=== PATIENT | female | born 1930 | race Caucasian/White ===

== ENCOUNTER 2017-04-06 17:59 | Inpatient (IN) ==
[2017-04-06] MEDS ORDERED: Naloxone 0.4 MG/ML INJ IVP PRN (21:51)
[2017-04-06] MEDS ORDERED: Ondansetron 4 MG/2 ML VIAL IVP PRN (21:51)
[2017-04-06] MEDS ORDERED: Acetaminophen 325 MG TABLET PO PRN (21:51)
[2017-04-06] MEDS: *HR* Morphine 2 MG/ML SYRINGE IVP PRN (22:26)
[2017-04-07 01:46] LABS: Basophils % 0.3 %; Eosinophils # 0.1 K/mcL (0.0-0.6); Eosinophils % 0.7 %; Hematocrit 32.5 % (35.3-44.9); Hemoglobin 10.5 g/dL (11.5-15.4); Immature Granulocytes % 0.3 % (0-4); Lymphocytes # 2.2 K/mcL (0.6-4.6); Lymphocytes % 24.1 %; Mean Corpuscular HGB Conc 32.3 g/dL (31.6-35.5); Mean Corpuscular Hemoglobin 27.6 pg (28.0-33.3); Mean Corpuscular Volume 85.3 fL (83.0-100.0); Mean Platelet Volume 11.1 fL (9.4-12.4); Monocytes # 1.2 K/mcL (0.0-1.3); Monocytes % 12.7 %; Neutrophils # 5.7 K/mcL (1.6-8.9); Platelet Count 214 K/mcL (140-400); Red Blood Count 3.81 M/mcL (3.82-4.97); Red Cell Distribution Width 14.5 % (11.5-14.5); Segmented Neutrophils % 61.9 %
[2017-04-07 01:51] LABS: INR 3.2; Prothrombin Time 35.6 Seconds (9.4-12.1)
[2017-04-07 02:01] LABS: Calcium 9.2 mg/dL (8.6-10.8); Potassium 3.9 mEq/L (3.5-4.5)
--- NOTE | 2017-04-07 02:23 | Internal Med History&Physical ---
Date of Encounter: 04/06/17 Time of Encounter: 21:00 Assessment and Plan (1) A-fib Current visit: Yes Status: Acute Heart rate is well controlled. Patient is on Coumadin. Will resume home medication for heart rate control when home medication is verified. Will hold the Coumadin at this point, may resume after orthopedic consult if no procedure is planned. Qualifiers: Atrial fibrillation type: chronic Qualified Code(s): I48.2 - Chronic atrial fibrillation (2) Hypothyroidism Current visit: Yes Status: Acute Will resume home medication after verification. Qualifiers: Hypothyroidism type: acquired Qualified Code(s): E03.9 - Hypothyroidism, unspecified (3) History of breast cancer Current visit: No Status: Acute S/P surgery (4) Fracture of left hip Current visit: No Status: Acute Due to mechanical fall. Continue pain medication. Orthopedic consult. Patient is at high risk because she is at advanced age but needs IV opioid. Qualifiers: Encounter type: initial encounter Fracture type: closed Qualified Code(s) : S72.002A - Fracture of unspecified part of neck of left femur, initial encounter for closed fracture (5) DVT prophylaxis Current visit: Yes Status: Acute Patient is on Coumadin, INR 2.9. Place EPCD. Internal Medicine - H&P: HPI Chief complaint: Fall and left hip pain Admitted From: Home Plans for Post Hospital Care: Transfer Inp Rehab Fac History of present illness: Ms. Lancaster is a 86 year old female transferred from [place] emergency room because of fall and left hip pain. Patient has history of A. fib on Coumadin. Patient said she fell in the morning are around [address] is wet[address] Patient denies loss of consciousness, denies head or neck injury. She was sent to [place] emergency room, pelvis CAT scan shows acute comminuted nondisplaced fracture of the greater trochanter of the left femur. Orthopedic consult was called. Recommend patient to transfer to our hospital for further management.. I have discussed the CODE STATUS with patient. She is full code. Past Med Surg Social Fam HX - Past Medical History Medical history: arthritis, atrial fibrillation, cancer, osteoporosis Psychiatric history: no psych history - Past Surgical History Surgical History: breast surgery, cholecystectomy - Social History Smoking Status: Never smoker Smokeless Tobacco Status: Yes Alcohol use: none Drug use: none - Family History Mother Living Status: Cause of : diabetes Father Living Status: Age at : 75 Cause of : cancer Internal Medicine - H&P: Meds Ascorbic Acid [Vitamin C] 500 mg PO DAILY #30 tablet 03/28/15 [Rx] Coumadin 1 tab PO DAILY 03/28/15 [History] Diltiazem HCl 1 tab PO DAILY 03/28/15 [History] Synthroid 1 tab PO DAILY 03/28/15 [History] Vitamin B-12 1 tab PO DAILY 03/28/15 [History] Calcium Carbonate [Calcium] 600 mg PO BID #60 tablet 09/25/16 [Rx] Cholecalciferol (Vitamin D3) [Dialyvite Vitamin D3 Max] 50,000 unit PO QWEEK # 14 tab 09/25/16 [Rx] Tramadol HCl [Ultram] 50 mg PO BID PRN #60 tab 12/26/16 [Rx] Calcitriol 0.5 mcg PO QDPC 02/27/17 [History] Sodium Bicarbonate 650 mg PO QDPC 02/27/17 [History] 3 Allergy/AdvReac Type Severity Reaction Status Date / Time No Known Allergies Allergy Verified 09/26/15 11:50 All Systems PM: A 10-system review of systems was performed and is negative for pertinent findings except as documented above in the HPI. - Constitutional Vitals: Temp Pulse Resp BP Pulse Ox 97.7 F 71 16 127/83 98 04/06/17 23:52 04/06/17 23:52 04/06/17 23:52 04/07/17 02:10 04/06/17 23:52 General appearance: Present: A&O X 3, no acute distress, answers questions appropriately - Head Head exam: Present: atraumatic, normocephalic - Eye Eye exam: Present: PERRL, conjuntiva pink, sclera anicteric Pupils: Present: PERRL - Neck Neck exam general surgery: Present: supple, trachea midline. Absent: lymphadenopathy - Respiratory Respiratory exam: Present: CTAB. Absent: accessory muscle use, rales, rhonchi, wheezes - Cardiovascular Cardiovascular exam: Present: irregular rhythm, +S1, +S2. Absent: diastolic murmur, gallop, rubs, systolic murmur - GI/Abdominal GI/Abdominal exam: Present: normal bowel sounds, soft, no peritoneal signs. Absent: distended, tenderness - Extremities Exam Extremities exam: Present: tenderness (Tenderness on left hip), warm, radial pulses palpable and symmetrical. Absent: calf tenderness, cyanotic, pedal edema - Neurological Exam Neurological exam: Present: CN II-XII intact, oriented X3, no focal deficits. Absent: pronater drift, facial droop, speech deficit - Skin Skin exam: Present: dry, intact Internal Med - H&P Results - Labs CBC & Chem 7: 04/07/17 01:12 04/07/17 01:12 Labs: Short CBC 04/07/17 Range/Units 01:12 WBC 9.2 (4.3-11.1) K/mcL Hgb 10.5 L (11.5-15.4) g/dL Hct 32.5 L (35.3-44.9) % Plt Count 214 (140-400) K/mcL Neutrophils # 5.7 (1.6-8.9) K/mcL BMP 04/07/17 01:12 Sodium 139 Potassium 3.9 Chloride 109 Carbon Dioxide 21 BUN 23 H Creatinine 1.56 H Glucose 135 H Calcium 9.2 - VTE Documentation of Mechanical Device: Intermittent pneumatic compression device
[2017-04-07] MEDS: *HR* Morphine 2 MG/ML SYRINGE IVP PRN ×2 (06:07→21:28)
--- NOTE | 2017-04-07 07:46 | Internal Med Progress Note ---
Date of Encounter: 04/07/17 Time of Encounter: 07:10 - Assessment and plan (1) Fracture of left hip Current Visit: No Status: Acute Assessment and plan: Acute comminuted nondisplaced Fracture of the greater trochanter on the Left femur - status post mechanical fall IV Morphine as needed for pain, Tylenol PRN Patient is on Warfarin, INR is therapeutic Pelvis CT - nondisplaced fracture of greater trochanter left femur Lumbar spine x-ray - moderate multilevel degenerative disc disease, no acute fracture Left knee x-ray - no acute abnormality Orthopedics consult pending Cardiac telemetry, continue to monitor closely Qualifiers: Encounter type: initial encounter Fracture type: closed Qualified Code(s) : S72.002A - Fracture of unspecified part of neck of left femur, initial encounter for closed fracture (2) A-fib Current Visit: Yes Status: Chronic Assessment and plan: Chronic Atrial Fibrillation - rate controlled Continue home dose of Diltiazem Patient is anticoagulated with Warfarin, INR is therapeutic Hold Warfarin for surgery Qualifiers: Atrial fibrillation type: chronic Qualified Code(s): I48.2 - Chronic atrial fibrillation (3) Hypothyroidism Current Visit: Yes Status: Chronic Assessment and plan: Continue home dose of Levothyroxine Qualifiers: Hypothyroidism type: acquired Qualified Code(s): E03.9 - Hypothyroidism, unspecified (4) Chronic kidney disease, stage 3 Current Visit: Yes Status: Chronic Assessment and plan: Chronic kidney disease stage III - stable, GFR/creatinine at baseline Repeat labs in a.m. 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 Patient is awake and alert. She is very hard of hearing. Not in any distress. She is oriented to place, person and time. Denies chest pain or shortness of breath. Denies vomiting or abdominal pain. She has a fever this morning. Hemodynamically stable. Admitted for left hip fracture after a mechanical fall. She does have atrial fibrillation. Patient is anticoagulated with warfarin. Orthopedics consult pending. No other acute events or complaints. - Constitutional Vitals: Temp Pulse Resp BP Pulse Ox 100.0 F H 91 16 126/79 96 04/07/17 07:16 04/07/17 07:16 04/07/17 07:16 04/07/17 07:16 04/07/17 07:16 General appearance: Present: cachectic, A&O X 3, pleasant, no acute distress, underweight, answers questions appropriately Exam: Patient is very hard of hearing, able to verbalize, follows commands, oriented 3 - Head Head exam: Present: atraumatic - Eye Eye exam: Present: EOMI - ENT ENT exam: Present: mucous membranes moist - Respiratory Respiratory exam: Present: CTAB. Absent: rales, rhonchi, wheezes, tachypnea - Cardiovascular Cardiovascular exam: Present: RRR, +S1, +S2 - GI/Abdominal GI/Abdominal exam: Present: soft. Absent: distended, firm, guarding, tenderness - Extremities Exam Extremities exam: Present: radial pulses palpable and symmetrical. Absent: calf tenderness, cyanotic, pedal edema Additional comments: Tenderness over left hip, limited range of motion left lower extremity - Neurological Exam Neurological exam: Present: alert, oriented X3, no focal deficits. Absent: facial droop, speech deficit Additional comments: Patient is very hard of hearing Internal Medicine: Result - Labs CBC & Chem 7: 04/07/17 01:12 04/07/17 01:12 Labs: Short CBC 04/07/17 Range/Units 01:12 WBC 9.2 (4.3-11.1) K/mcL Hgb 10.5 L (11.5-15.4) g/dL Hct 32.5 L (35.3-44.9) % Plt Count 214 (140-400) K/mcL Neutrophils # 5.7 (1.6-8.9) K/mcL BMP 04/07/17 01:12 Sodium 139 Potassium 3.9 Chloride 109 Carbon Dioxide 21 BUN 23 H Creatinine 1.56 H Glucose 135 H Calcium 9.2 - ABG Interpretation ABG results: PT/INR, D-dimer PT 35.6 Seconds (9.4-12.1) H 04/07/17 01:12 - VTE Documentation of Mechanical Device: Intermittent pneumatic compression device Consult Discharge Plan - Plan Referrals: Heather Escoto, [facility] [Primary Care Provider] -
[2017-04-07] MEDS ORDERED: CHOLECALCIFEROL PO SCH (08:00)
[2017-04-07] MEDS ORDERED: DILTIAZEM HCL PO SCH (09:00)
[2017-04-07] MEDS: Cyanocobalamin (B-12) 1,000 MCG TABLET PO SCH (09:56)
[2017-04-07] MEDS: Diltiazem CD (24hr) 120 MG CAPSULE PO SCH (10:20)
--- NOTE | 2017-04-07 13:22 | Orthopedic Consult Note ---
Date of Encounter: 04/07/17 Time of Encounter: 13:16 History of Present Illness Chief complaint: Left hip and leg pain HPI: Ms. Lancaster is a 86 year old female who sustained a mechanical fall yesterday on the wet ground. She saint injuries to her left leg. She presented initially to [facility] were x-rays of the left hip revealed a greater trochanter fracture. There was suspicion for further fractures therefore a CT scan was performed. This revealed evidence of the comminuted but nondisplaced trochanteric fracture. There was some suspicion for the possibility of a intertrochanteric extension. Patient was transferred to [facility] for further evaluation and management. The patient is on Coumadin for atrial fibrillation For complete history and physical data please refer the completed portion of the medical chart. Pertinent orthopedic examination reveals tenderness to palpation about the left hip. There is some early ecchymosis. Left knee likewise shows some ecchymosis anteriorly. There is some tenderness to palpation over the proximal tibia. I reviewed x-rays from [facility]. The x-ray of the left knee is a nonweightbearing x-ray and does not show any acute processes. No evidence of acute fractures nor dislocation. I do not appreciate an effusion. X-rays of the pelvis and left hip reveals arthritic changes in the right hip with what appears to be an acute greater trochanteric fracture on the left. There is some pelvic tilt suspect is secondary to lumbar disease. CT scan of the pelvis was likewise reviewed. This shows a comminuted though nondisplaced fracture of the greater trochanter of the left hip. I do not appreciate any extension into the neck or intertrochanteric region. Impression: Acute comminuted, nondisplaced fracture greater trochanter left hip Recommendation: I do not feel any further imaging is required. The patient has a well-defined greater trochanteric fracture of the left hip without any cortical disruption seen on CT scan. Would begin weightbearing ambulation as tolerated utilizing a walker. Patient can resume all medications. Would consult with social services designee to see if the patient is going to be safe to go home or will require a short-term rehabilitation stay. I will have the patient follow up with me in about 3 weeks after discharge or sooner should any problems arise. Thank you for allowing me to seen care for Mrs. Lancaster. Sincerely, Yonas Ramsey,DO Past Med Surg Social Fam HX - Past Medical History Medical history: arthritis, atrial fibrillation, cancer, osteoporosis Psychiatric history: no psych history - Past Surgical History Surgical History: breast surgery, cholecystectomy - Social History Smoking Status: Never smoker Smokeless Tobacco Status: Yes Alcohol use: none Drug use: none - Family History Mother Living Status: Cause of : diabetes Father Living Status: Age at : 75 Cause of : cancer Medications and Allergies Ascorbic Acid [Vitamin C] 500 mg PO DAILY #30 tablet 03/28/15 [Rx] Coumadin 1 tab PO DAILY 03/28/15 [History] Diltiazem HCl 1 tab PO DAILY 03/28/15 [History] Synthroid 1 tab PO DAILY 03/28/15 [History] Vitamin B-12 1 tab PO DAILY 03/28/15 [History] Calcium Carbonate [Calcium] 600 mg PO BID #60 tablet 09/25/16 [Rx] Cholecalciferol (Vitamin D3) [Dialyvite Vitamin D3 Max] 50,000 unit PO QWEEK # 14 tab 09/25/16 [Rx] Tramadol HCl [Ultram] 50 mg PO BID PRN #60 tab 12/26/16 [Rx] Calcitriol 0.5 mcg PO QDPC 02/27/17 [History] Sodium Bicarbonate 650 mg PO QDPC 02/27/17 [History] 3 Allergy/AdvReac Type Severity Reaction Status Date / Time No Known Allergies Allergy Verified 09/26/15 11:50 All Systems Reviewed: A 10-system review of systems was performed and is negative for pertinent findings except as documented above in the HPI. Physical Exam - Constitutional Vitals: Temp Pulse Resp BP Pulse Ox 99.4 F 91 17 132/75 95 04/07/17 11:17 04/07/17 11:17 04/07/17 11:17 04/07/17 11:17 04/07/17 11:17 Results - Labs Result Diagrams: 04/07/17 01:12 04/07/17 01:12 Labs: Abnormal lab results RBC 3.81 M/mcL (3.82-4.97) L 04/07/17 01:12 Hgb 10.5 g/dL (11.5-15.4) L 04/07/17 01:12 Hct 32.5 % (35.3-44.9) L 04/07/17 01:12 MCH 27.6 pg (28.0-33.3) L 04/07/17 01:12 PT 35.6 Seconds (9.4-12.1) H 04/07/17 01:12 BUN 23 mg/dL (7-20) H 04/07/17 01:12 Creatinine 1.56 mg/dL (0.57-1.11) H 04/07/17 01:12 Est GFR ( Amer) 38 (> 60) L 04/07/17 01:12 Est GFR (Non-Af Amer) 31 (> 60) L 04/07/17 01:12 Glucose 135 mg/dL (70-99) H 04/07/17 01:12 H & H 04/07/17 Range/Units 01:12 Hgb 10.5 L (11.5-15.4) g/dL Hct 32.5 L (35.3-44.9) % All other labs normal. - Diagnostic results Hip AP/Lateral x-ray: image reviewed Hip CT: image reviewed Knee x-ray: image reviewed Consult Discharge Plan - Plan Referrals: Heather Escoto, [employer] [Primary Care Provider] -
--- NOTE | 2017-04-08 07:37 | Internal Med Progress Note ---
Date of Encounter: 04/08/17 Time of Encounter: 07:10 - Assessment and plan (1) Fracture of left hip Current Visit: No Status: Acute Assessment and plan: Acute comminuted nondisplaced Fracture of the greater trochanter on the Left femur - status post mechanical fall IV Morphine as needed for pain, Tylenol PRN Continue Warfarin, INR is therapeutic, pharmacy to dose Pelvis CT - nondisplaced fracture of greater trochanter left femur Lumbar spine x-ray - moderate multilevel degenerative disc disease, no acute fracture Left knee x-ray - no acute abnormality Orthopedics consult - recommend conservative management, PT/OT, weightbearing ambulation Cardiac telemetry, continue to monitor closely, anticipate discharge to ECF Qualifiers: Encounter type: initial encounter Fracture type: closed Qualified Code(s) : S72.002A - Fracture of unspecified part of neck of left femur, initial encounter for closed fracture (2) A-fib Current Visit: Yes Status: Chronic Assessment and plan: Chronic Atrial Fibrillation - rate controlled Continue home dose of Diltiazem Patient is anticoagulated with Warfarin, INR is therapeutic Continue Warfarin, pharmacy to dose, PT/INR in a.m. Qualifiers: Atrial fibrillation type: chronic Qualified Code(s): I48.2 - Chronic atrial fibrillation (3) Hypothyroidism Current Visit: Yes Status: Chronic Assessment and plan: Continue home dose of Levothyroxine Qualifiers: Hypothyroidism type: acquired Qualified Code(s): E03.9 - Hypothyroidism, unspecified (4) Chronic kidney disease, stage 3 Current Visit: Yes Status: Chronic Assessment and plan: Chronic Kidney Disease stage III - stable, GFR/creatinine at baseline Repeat labs in a.m. (5) History of breast cancer Current Visit: No Status: Chronic Assessment and plan: History of right breast Adenocarcinoma - s/p right simple mastectomy Lymph nodes negative - s/p chemotherapy Patient is no longer taking Aromatase Inhibitors Patient does have osteoporosis and has been on Denosumab (6) DVT prophylaxis Current Visit: Yes Status: Acute Assessment and plan: Patient is anticoagulated on Warfarin, INR is therapeutic Continue Warfarin - Time Spent With Patient 25 - 35 minutes - Subjective Interval history: Examined this morning. Patient is awake and alert. She is very hard of hearing. Not in any distress. She is oriented to place, person and time. Denies chest pain or shortness of breath. Denies vomiting or abdominal pain. No fever. Hemodynamically stable. Admitted for left hip fracture after a mechanical fall. She does have atrial fibrillation. Patient is anticoagulated with Warfarin. Orthopedics recommends conservative management. Weightbearing ambulation to be started by PT/OT. Patient will need ECF placement for rehabilitation. Follow up with orthopedics as outpatient in 3 weeks. No other acute events or complaints. - Constitutional Vitals: Temp Pulse Resp BP Pulse Ox 98 F 92 16 137/78 99 04/08/17 06:25 04/08/17 06:25 04/08/17 06:25 04/08/17 06:25 04/08/17 06:25 General appearance: Present: cachectic, A&O X 3, pleasant, no acute distress, underweight, answers questions appropriately Exam: Patient is very hard of hearing, able to verbalize, follows commands, oriented 3 - Head Head exam: Present: atraumatic - Eye Eye exam: Present: EOMI - ENT ENT exam: Present: mucous membranes moist - Respiratory Respiratory exam: Present: CTAB. Absent: rales, rhonchi, wheezes, tachypnea - Cardiovascular Cardiovascular exam: Present: RRR, +S1, +S2 - GI/Abdominal GI/Abdominal exam: Present: soft. Absent: distended, firm, guarding, tenderness - Extremities Exam Extremities exam: Present: radial pulses palpable and symmetrical. Absent: calf tenderness, cyanotic, pedal edema Additional comments: Tenderness over left hip, limited range of motion left lower extremity - Neurological Exam Neurological exam: Present: alert, oriented X3, no focal deficits. Absent: facial droop, speech deficit Additional comments: Patient is very hard of hearing Internal Medicine: Result - Labs CBC & Chem 7: 04/07/17 01:12 04/07/17 01:12 - ABG Interpretation ABG results: PT/INR, D-dimer PT 35.6 Seconds (9.4-12.1) H 04/07/17 01:12 - VTE Documentation of Mechanical Device: Intermittent pneumatic compression device Consult Discharge Plan - Plan Referrals: Heather Escoto, [employer] ASSURANCE DIRECTOR [Primary Care Provider] -
[2017-04-08] MEDS: Diltiazem CD (24hr) 120 MG CAPSULE PO SCH (08:47)
[2017-04-08] MEDS: Cyanocobalamin (B-12) 1,000 MCG TABLET PO SCH (08:47)
[2017-04-08] MEDS: *HR* HYDROcodone/Acet 5/325 mg TABLET PO PRN ×3 (08:48→22:53)
[2017-04-08 09:24] LABS: Basophils % 0.2 %; Eosinophils # 0.1 K/mcL (0.0-0.6); Eosinophils % 0.7 %; Hematocrit 33.6 % (35.3-44.9); Immature Granulocytes % 0.3 % (0-4); Lymphocytes # 1.4 K/mcL (0.6-4.6); Lymphocytes % 14.2 %; Mean Corpuscular HGB Conc 32.7 g/dL (31.6-35.5); Mean Corpuscular Hemoglobin 28.6 pg (28.0-33.3); Mean Corpuscular Volume 87.3 fL (83.0-100.0); Mean Platelet Volume 11.2 fL (9.4-12.4); Monocytes # 0.8 K/mcL (0.0-1.3); Monocytes % 8.3 %; Neutrophils # 7.5 K/mcL (1.6-8.9); Platelet Count 210 K/mcL (140-400); Red Blood Count 3.85 M/mcL (3.82-4.97); Red Cell Distribution Width 14.7 % (11.5-14.5); Segmented Neutrophils % 76.3 %
[2017-04-08 09:26] LABS: INR 2.3; Prothrombin Time 25.3 Seconds (9.4-12.1)
[2017-04-08 09:32] LABS: Calcium 9.2 mg/dL (8.6-10.8); Potassium 3.8 mEq/L (3.5-4.5)
--- NOTE | 2017-04-08 14:53 | Orthopedics Progress Note ---
Date of Encounter: 04/08/17 Time of Encounter: 14:51 Subjective Principal diagnosis: Fracture left greater trochanter Interval history: 04/08/2017. Patient appears relatively comfortable. Vital signs are stable. Patient is afebrile. Exam unchanged. H&H is stable. Impression: Nondisplaced, comminuted fracture left greater trochanter Recommendation: As noted previously this is a nonoperative fracture and can be treated conservatively with weightbearing ambulation with a walker. Orthopedic status is stable. We will follow as needed while hospitalized and as an outpatient in a few weeks' time as noted previously. Objective Vital signs: Vital Signs Temp Pulse Resp BP Pulse Ox 04/08/17 11:08 98.5 F 98 16 135/83 98 04/08/17 06:25 98 F 92 16 137/78 99 04/08/17 04:24 97.8 F 96 17 140/75 98 04/07/17 23:42 97.7 F 97 16 141/77 98 04/07/17 20:00 97.9 F 88 16 148/77 98 Intake and Output 04/07/17 04/08/17 04/08/17 23:59 07:59 15:59 Intake Total 620 / 620 Balance 620 / 620 Intake: Oral 620 / 620 Other: Meal Dinner Percent of Meal Consumed 80% # Voids 1 1 Weight 50 kg Patient Weight 04/08/17 23:59 Weight 50 kg - Labs CBC & BMP: 04/08/17 09:11 04/08/17 09:11 Labs: Abnormal lab results Hgb 11.0 g/dL (11.5-15.4) L 04/08/17 09:11 Hct 33.6 % (35.3-44.9) L 04/08/17 09:11 RDW 14.7 % (11.5-14.5) H 04/08/17 09:11 PT 25.3 Seconds (9.4-12.1) H 04/08/17 09:11 BUN 24 mg/dL (7-20) H 04/08/17 09:11 Creatinine 1.68 mg/dL (0.57-1.11) H 04/08/17 09:11 Est GFR ( Amer) 35 (> 60) L 04/08/17 09:11 Est GFR (Non-Af Amer) 29 (> 60) L 04/08/17 09:11 Glucose 232 mg/dL (70-99) H 04/08/17 09:11 - VTE Documentation of Mechanical Device: Intermittent pneumatic compression device Consult Discharge Plan - Plan Referrals: Heather Escoto, CONSTRUCTION EQUIPMENT MECHANIC [Primary Care Provider] -
[2017-04-08] MEDS ORDERED: *HR* Warfarin 1 MG TABLET PO ONE (18:00)
[2017-04-09 05:39] LABS: INR 2.4; Prothrombin Time 26.5 Seconds (9.4-12.1)
[2017-04-09 05:50] LABS: Calcium 8.9 mg/dL (8.6-10.8); Potassium 3.9 mEq/L (3.5-4.5)
[2017-04-09] MEDS: Diltiazem CD (24hr) 120 MG CAPSULE PO SCH (07:46)
[2017-04-09] MEDS: Cyanocobalamin (B-12) 1,000 MCG TABLET PO SCH (07:46)
[2017-04-09] MEDS: *HR* HYDROcodone/Acet 5/325 mg TABLET PO PRN ×2 (07:49→20:07)
--- NOTE | 2017-04-09 08:17 | Electrocardiograph Report ---
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
--- NOTE | 2017-04-09 17:06 | Orthopedics Progress Note ---
Date of Encounter: 04/09/17 Time of Encounter: 17:04 Subjective Principal diagnosis: Fracture left greater trochanter Interval history: 04/08/2017. Patient appears relatively comfortable. Vital signs are stable. Patient is afebrile. Exam unchanged. H&H is stable. Impression: Nondisplaced, comminuted fracture left greater trochanter Recommendation: As noted previously this is a nonoperative fracture and can be treated conservatively with weightbearing ambulation with a walker. Orthopedic status is stable. We will follow as needed while hospitalized and as an outpatient in a few weeks' time as noted previously. 04/09/2017. Patient appears stated screw. Vital signs stable. Patient is afebrile. Exam unchanged. Impression: Nondisplaced fracture left greater trochanter. Recommendations: Continue weightbearing as tolerated utilize a walker at all times. Follow-up as an outpatient in about 3 weeks' time or sooner should any problems arise. Objective Vital signs: Vital Signs Temp Pulse Resp BP Pulse Ox 04/09/17 15:17 97.5 F L 86 16 144/85 95 04/09/17 11:27 98.4 F 83 16 120/78 96 04/09/17 06:23 98.2 F 82 16 140/84 98 04/09/17 04:25 98.4 F 89 18 145/88 96 04/09/17 00:39 98.6 F 102 17 128/82 98 04/08/17 21:30 98.4 F 94 18 142/90 98 Intake and Output 04/09/17 04/09/17 04/09/17 07:59 15:59 23:59 Intake Total 400 / 400 360 / 360 Output Total 600 / 600 150 / 150 Balance -200 / -200 210 / 210 Intake: Oral 400 / 400 360 / 360 Output: Urine 600 / 600 150 / 150 Other: Meal Lunch Percent of Meal Consumed 100% Stool Size Large Stool Consistency loose soft Stool Color Brown Yellow # Bowel Movements 1 - Labs CBC & BMP: 04/08/17 09:11 04/09/17 04:37 Labs: Abnormal lab results Hgb 11.0 g/dL (11.5-15.4) L 04/08/17 09:11 Hct 33.6 % (35.3-44.9) L 04/08/17 09:11 RDW 14.7 % (11.5-14.5) H 04/08/17 09:11 PT 26.5 Seconds (9.4-12.1) H 04/09/17 04:37 BUN 28 mg/dL (7-20) H 04/09/17 04:37 Creatinine 1.54 mg/dL (0.57-1.11) H 04/09/17 04:37 Est GFR ( Amer) 39 (> 60) L 04/09/17 04:37 Est GFR (Non-Af Amer) 32 (> 60) L 04/09/17 04:37 - VTE Documentation of Mechanical Device: Intermittent pneumatic compression device Consult Discharge Plan - Plan Referrals: Heather Escoto, [employer]ATING [Primary Care Provider] -
--- NOTE | 2017-04-09 17:41 | Discharge Summary ---
Date of Encounter: 04/09/17 Time of Encounter: 17:30 - Discharge Diagnosis (1) Fall Priority: Primary Status: Acute Qualifiers: Qualified Code(s): W19.XXXA - Unspecified fall, initial encounter (2) Fracture of left hip Priority: Primary Status: Acute Qualifiers: Encounter type: initial encounter Fracture type: closed Qualified Code(s) : S72.002A - Fracture of unspecified part of neck of left femur, initial encounter for closed fracture (3) A-fib Priority: Secondary Status: Chronic Qualifiers: Atrial fibrillation type: chronic Qualified Code(s): I48.2 - Chronic atrial fibrillation (4) Chronic kidney disease, stage 3 Priority: Secondary Status: Chronic (5) Hypothyroidism Priority: Secondary Status: Chronic Qualifiers: Hypothyroidism type: acquired Qualified Code(s): E03.9 - Hypothyroidism, unspecified - Discharge Medications Prescriptions: Oxycodone HCl/Acetaminophen [Percocet 5-325 mg Tablet] 1 each PO Q6H PRN #25 tablet PRN Reason: Pain Home Medications: Calcitriol [Calcitriol] 0.5 mcg PO DAILY 04/08/17 [History] Diltiazem CD (24hr) [Cardizem CD] 120 mg PO DAILY 04/08/17 [History] Levothyroxine Sodium [Levothyroxine Sodium] 75 mg PO DAILY 04/08/17 [History] Ropinirole HCl [Requip] 0.5 mg PO HS 04/08/17 [History] Tramadol HCl [Ultram] 50 mg PO HS PRN 04/08/17 [History] Warfarin [Coumadin] 1 mg PO MOWEFR 04/08/17 [History] Warfarin [Coumadin] 2 mg PO SUTUTHSA 04/08/17 [History] Levothyroxine [Synthroid] 75 mcg PO DAILY tab 04/09/17 [Rx] Oxycodone HCl/Acetaminophen [Percocet 5-325 mg Tablet] 1 each PO Q6H PRN #25 tablet 04/09/17 [Rx] Allergies/Adverse Reactions: 3 Allergy/AdvReac Type Severity Reaction Status Date / Time No Known Allergies Allergy Verified 09/26/15 11:50 Procedures/tests Complete & Pending: Procedures Performed prior 72 hours Category Date Time Status ECG 12 lead ECG [ECG] Routine Y 04/06/17 21:47 Completed Date of admission: 04/06/17 21:51 Primary care physician: Heather Escoto CNP Consults: 04/06/17 21:57 Consult to Orthopedic Surgery [CONS] Routine Consulting Provider: Orthopedic and Sports Medicine Reason for Consult: Fracture. Dr Ramsey was called by [facility] ER Call Completed: Yes 04/06/17 23:01 Consult to Nutrition [CONS] Routine Comment: Consulting Provider: NUTRITION Reason for Dietary Consult: MST Score Consult to [employer] [CONS] Routine Reason for SW Consult: possible placement 04/08/17 07:20 Consult to Occupational Therapy [CONS] Routine Comment: Evaluate, develop and implement POC Reason for Consult: hip fracture PT [Consult to Physical Therapy] [CONS] Routine Comment: Evaluate, develop and implement POC Reason for Consult: hip fracture - Patient Status Disposition: Home Health Service Condition: Fair Overall status at discharge: patient is progressing back to baseline - Discharge Instructions Follow Up With: Heather Escoto CNP [Primary Care Provider] - Additional Instructions: Need to f/u with PCP in one week Need to f/u with Ortho Dr. Ramsey in 2-3 weeks - Diet and Activity Activity: as per physical therapy Diet: low salt diet Hospital course: Ms. Lancaster is a 86 year old female transferred from [facility] emergency room because of fall and left hip pain. Patient has history of A. fib on Coumadin. Patient said she fell in the morning are around [address] is wet. Patient denies loss of consciousness, denies head or neck injury. She was sent to [facility] emergency room, pelvis CAT scan shows acute comminuted non displaced fracture of the greater trochanter of the left femur. Pt was admitted here and consulted Ortho for further evaluation. Pt was seen by ortho Dr. Ramsey, who recommend medical and conservative therapy only with weight bearing as tolerated. pt was evaluated by PT / OT , who recommend ECF placement. Apparently as per EHR review pt does meet observation criteria for and 04/07 only. So Medicare is not going to pay for her hospital stay as well as for ECF placement. So my SW did mention all these to pt and her at bed side. She offered them to go to [facility] / [facility]. Or he can pay out of his pocket for ECF placement. PT's does not want to pay for ECF stay and does not wanted to go to [facility] or [facility] since they are too far. I clearly explained to the pt and her it is not safe for her to go home since she has to go up 3-4 steps too. However he opted to take her home with squad help, since he does not want to pay large hospital bills. He wanted to take her home today. - Time Spent with Patient Total time spent providing and/or coordinating discharge services: - Constitutional Vitals: Temp Pulse Resp BP Pulse Ox 97.5 F L 86 16 144/85 95 04/09/17 15:17 04/09/17 15:17 04/09/17 15:17 04/09/17 15:17 04/09/17 15:17 General appearance: Present: cachectic, A&O X 3, pleasant, no acute distress, underweight, answers questions appropriately - Head Head exam: Present: atraumatic, normal inspection - Respiratory Respiratory exam: Present: decreased breath sounds, wheezes. Absent: respiratory distress, rhonchi - Cardiovascular Cardiovascular exam: Present: irregular rhythm, +S1, +S2. Absent: systolic murmur - GI/Abdominal GI/Abdominal exam: Present: soft. Absent: rebound, rigid, tenderness - Extremities Exam Extremities exam: Present: tenderness (Left hip area). Absent: calf tenderness , pedal edema Additional comments: limited ROM and tenderness noticed over Left hip area. Neuro vascularly intact distally in both legs - Neurological Exam Neurological exam: Present: alert, oriented X3 - Psychiatric Psychiatric exam: Present: normal affect, normal mood - VTE Documentation of Mechanical Device: Intermittent pneumatic compression device
[2017-04-09] MEDS ORDERED: *HR* Warfarin 2 MG TABLET PO ONE (18:00)
--- NOTE | 2017-04-09 18:34 | Physician Discharge Referral ---
ExtendedCare Referral Info Transfer To: F Provider in Charge after Transfer: PCP Institutional Level of Care: Skilled - Diagnosis (1) Fall Status: Acute (2) Fracture of left hip Status: Acute (3) A-fib Status: Chronic (4) Chronic kidney disease, stage 3 Status: Chronic (5) Hypothyroidism Status: Chronic - Transfer Medications Prescriptions: Oxycodone HCl/Acetaminophen [Percocet 5-325 mg Tablet] 1 each PO Q6H PRN #25 tablet PRN Reason: Pain Home Medications: Calcitriol 0.5 mcg PO DAILY 04/08/17 [History] Diltiazem CD (24hr) [Cardizem CD] 120 mg PO DAILY 04/08/17 [History] Levothyroxine Sodium 75 mg PO DAILY 04/08/17 [History] Ropinirole HCl [Requip] 0.5 mg PO HS 04/08/17 [History] Tramadol HCl [Ultram] 50 mg PO HS PRN 04/08/17 [History] Warfarin [Coumadin] 1 mg PO MOWEFR 04/08/17 [History] Warfarin [Coumadin] 2 mg PO SUTUTHSA 04/08/17 [History] Levothyroxine [Synthroid] 75 mcg PO DAILY tab 04/09/17 [Rx] Oxycodone HCl/Acetaminophen [Percocet 5-325 mg Tablet] 1 each PO Q6H PRN #25 tablet 04/09/17 [Rx] Allergies/Adverse Reactions: 3 Allergy/AdvReac Type Severity Reaction Status Date / Time No Known Allergies Allergy Verified 09/26/15 11:50 - Respiratory Orders Smoking Cessation: Smoking cessation has been advised. For more information, call the [place] Tobacco Quit Line at 6-706-OHUG-NOW. CERTIFICATION: I certify that the transfer of the above named patient to an Extended Care Facility is necessary for the continuing treatment of the diagnosis listed. The above information is true and accurate reflection of patient's current condition. Confidential - Redisclosure prohibited without a patient's written consent.
[2017-04-10 05:46] LABS: INR 2.8; Prothrombin Time 31.3 Seconds (9.4-12.1)
[2017-04-10] MEDS: Diltiazem CD (24hr) 120 MG CAPSULE PO SCH (07:50)
[2017-04-10] MEDS: Cyanocobalamin (B-12) 1,000 MCG TABLET PO SCH (07:50)
[2017-04-10] MEDS: *HR* HYDROcodone/Acet 5/325 mg TABLET PO PRN ×3 (07:55→17:14)
--- NOTE | 2017-04-10 14:53 | Internal Med Progress Note ---
Date of Encounter: 04/10/17 Time of Encounter: 08:30 - Assessment and plan (1) Fracture of left hip Current Visit: No Status: Acute Assessment and plan: Acute comminuted nondisplaced Fracture of the greater trochanter on the Left femur - status post mechanical fall Pt was evaluated by Ortho who recommend conservative care with Pain meds and PT / OT Recommend weightbaring as tolerated on Left leg Pt is still c/o Left hip pain and not ambulating well due to pain Cont [place] and IV Morphine as needed for pain I was miss informed y/d by my care management team about pt's admission status. She definitely need to be full admission due to her complex medical problem, still requiring frequent pain medication and need lot of assistance for ambulation. So will continue as full admission which was placed in since admission. Pt was evaluated by PT / OT today and still recommending for ECF placement SW is working on ECF pacement Medically stable to d/c ECF today Qualifiers: Encounter type: initial encounter Fracture type: closed Qualified Code(s) : S72.002A - Fracture of unspecified part of neck of left femur, initial encounter for closed fracture (2) Fall Current Visit: Yes Status: Acute Qualifiers: Qualified Code(s): W19.XXXA - Unspecified fall, initial encounter (3) A-fib Current Visit: Yes Status: Chronic Assessment and plan: Chronic Atrial Fibrillation - rate controlled Continue home dose of Diltiazem Patient is anticoagulated with Warfarin, INR is therapeutic Continue Warfarin, pharmacy to dose Qualifiers: Atrial fibrillation type: chronic Qualified Code(s): I48.2 - Chronic atrial fibrillation (4) Chronic kidney disease, stage 3 Current Visit: Yes Status: Chronic Assessment and plan: Chronic Kidney Disease stage III - stable, GFR/creatinine at baseline (5) Hypothyroidism Current Visit: Yes Status: Chronic Assessment and plan: Continue home dose of Levothyroxine Qualifiers: Hypothyroidism type: acquired Qualified Code(s): E03.9 - Hypothyroidism, unspecified - Subjective Interval history: Ms. Lancaster is a 86 year old female transferred from [place] emergency room because of fall and left hip pain. Patient has history of A. fib on Coumadin. Patient said she fell in the morning are around [address] is wet. Patient denies loss of consciousness, denies head or neck injury. She was sent to [place] emergency room, pelvis CAT scan shows acute comminuted non displaced fracture of the greater trochanter of the left femur. Pt was admitted here and consulted Ortho for further evaluation. Pt was seen by ortho Dr. Ramsey, who recommend medical and conservative therapy only with weight bearing as tolerated. Pt is resting comfortably in chair. Denied any CP / SOB. She is alert, awake and Oriented. Still c/o severe pain in Left hip and unable to ambulate well due to pain - Constitutional Vitals: Temp Pulse Resp BP Pulse Ox 98.5 F 94 17 163/89 97 04/10/17 06:45 04/10/17 06:45 04/10/17 06:45 04/10/17 06:45 04/10/17 06:45 General appearance: Present: cachectic, A&O X 3, pleasant, no acute distress, underweight, answers questions appropriately - Head Head exam: Present: atraumatic, normal inspection - Respiratory Respiratory exam: Present: decreased breath sounds, wheezes. Absent: rales, respiratory distress, rhonchi - Cardiovascular Cardiovascular exam: Present: RRR, +S1, +S2. Absent: systolic murmur - GI/Abdominal GI/Abdominal exam: Present: normal bowel sounds, soft. Absent: rebound, rigid, tenderness - Extremities Exam Extremities exam: Present: tenderness (Left hip). Absent: calf tenderness, pedal edema Additional comments: Limited ROM in Left due too severe pain - Neurological Exam Neurological exam: Present: alert, oriented X3 - Psychiatric Psychiatric exam: Present: normal affect, normal mood Internal Medicine: Result - Labs CBC & Chem 7: 04/08/17 09:11 04/09/17 04:37 - ABG Interpretation ABG results: PT/INR, D-dimer PT 31.3 Seconds (9.4-12.1) H 04/10/17 04:21 - VTE Documentation of Mechanical Device: Intermittent pneumatic compression device Consult Discharge Plan - Plan Additional Instructions: Need to f/u with PCP in one week Need to f/u with Ortho Dr. Ramsey in 2-3 weeks Referrals: Heather Escoto, P[employer]ING ATTENDANT [Primary Care Provider] - Prescriptions: Oxycodone HCl/Acetaminophen [Percocet 5-325 mg Tablet] 1 each PO Q6H PRN #25 tablet PRN Reason: Pain
[2017-04-10] MEDS: Warfarin perPT PO SCH ×2 (17:09→17:10)
[2017-04-10] MEDS ORDERED: *HR* Warfarin 1 MG TABLET PO ONE (18:00)
[2017-04-11 06:05] LABS: INR 3.1; Prothrombin Time 34.4 Seconds (9.4-12.1)
[2017-04-11 06:54] VITALS: BP 123/74
== END 2017-04-11 09:00 | disposition home health service (06) | DRG 536 ==
LOC: 3NENU → SUATTDRO 21:51
PROVIDERS: ADMIT Nurse Practitioner Acute Care; ATTEND Family Medicine